=== PATIENT | female | born 1990 | race Caucasian/White ===

== ENCOUNTER 2019-10-08 07:45 | Inpatient (IN) | payer MEDICAID ==
[2019-11-05 09:37] LABS: APPEARANCE,URINE CLEAR; BILIRUBIN,URINE NEGATIVE (NEGATIVE); COLOR,URINE STRAW; GLUCOSE, URINE NEGATIVE (NEGATIVE); KETONES,URINE NEGATIVE (NEGATIVE); LEUKOCYTE ESTERASE,URINE NEGATIVE (NEGATIVE); NITRITE,URINE NEGATIVE (NEGATIVE); PROTEIN,URINE NEGATIVE (NEGATIVE); URINE SPECIFIC GRAVITY 1.005; UROBILINOGEN,URINE NEGATIVE mg/dL (<2.0)
[2019-11-05 09:53] LABS: URINE AMPHETAMINES SCREEN NEGATIVE; URINE BARBITURATES SCREEN NEGATIVE; URINE BENZODIAZEPINES SCREEN NEGATIVE; URINE COCAINE SCREEN NEGATIVE; URINE MARIJUANA (THC) SCREEN NEGATIVE; URINE METHADONE SCREEN NEGATIVE; URINE PHENCYCLIDINE SCREEN NEGATIVE
[2019-11-05 11:19] LABS: CHLAM PCR NOT DETECTED (NOT DETECT)
[2019-11-06 09:13] LABS: ABSOLUTE EOSINOPHILS # (AUTO) 0.1 10^3/uL (0.0-0.6); ABSOLUTE LYMPHOCYTES (AUTO) 1.7 10^3/uL (0.5-4.7); ABSOLUTE MONOCYTES (AUTO) 0.5 10^3/uL (0.1-1.4); ABSOLUTE NEUT (AUTO) 4.4 10^3/uL (1.7-8.2); BASOPHILS % (AUTO) 0.5 % (0-2); EOSINOPHILS % (AUTO) 1.1 % (0-6); HEMATOCRIT 35.9 % (36.0-47.0); HEMOGLOBIN 12.2 g/dL (12.0-15.5); LYMPHOCYTES % (AUTO) 25.1 % (13-45); MEAN CORPUSCULAR HEMOGLOBIN 29.8 pg (27.0-33.4); MEAN CORPUSCULAR HGB CONC 33.9 g/dL (32.0-36.0); MEAN CORPUSCULAR VOLUME 88 fl (80-97); MONOCYTES % (AUTO) 7.2 % (3-13); PLATELET COUNT 207 10^3/uL (150-450); RED BLOOD COUNT 4.09 10^6/uL (3.72-5.28); RED CELL DISTRIBUTION WIDTH 13.3 % (11.5-14.0); SEGMENTED NEUTROPHILS % (AUTO) 66.1 % (42-78); TOTAL CELLS COUNTED % (AUTO) 100 %; WHITE BLOOD COUNT 6.7 10^3/uL (4.0-10.5)
[2019-11-08] MEDS ORDERED: CEFAZOLIN 2 GM/D5W RTU 2 GM/50 ML RTUPB IV PRN (04:58)
[2019-11-08] MEDS ORDERED: RINGERS SOLUTION,LACTATED 1,000 ML IV ONE (05:15)
[2019-11-08] MEDS ORDERED: CEFAZOLIN INJ 1 GM VIAL ONE (06:13)
[2019-11-08] MEDS ORDERED: NALBUPHINE HCL INJ 10 MG/1 ML AMPULE ONE (06:40)
[2019-11-08] MEDS ORDERED: OXYTOCIN 10 UNIT/ML VIAL ONE (06:40)
[2019-11-08] MEDS ORDERED: EPHEDRINE SULFATE INJ 50 MG/1 ML AMPULE ONE (06:40)
[2019-11-08] MEDS ORDERED: FENTANYL CITRATE INJ/PF 100 MCG/2 ML AMPUL ONE (06:40)
[2019-11-08] MEDS ORDERED: MIDAZOLAM 2 MG/2 ML INJ ONE (06:40)
[2019-11-08] MEDS ORDERED: OXYTOCIN/NORMAL SALINE 20 UNIT/1,000 ML RTUINJ ONE (06:41)
[2019-11-08] MEDS ORDERED: ONDANSETRON HCL INJ/PF 4 MG/2 ML SDV ONE (06:41)
[2019-11-08] MEDS ORDERED: OXYCODONE-ACETAMINOPHEN 5-325 MG TABLET PO PRN ×2 (08:09→09:16)
[2019-11-08] MEDS ORDERED: PROMETHAZINE HCL INJ 25 MG/1 ML VIAL IV PRN ×3 (08:09→13:00)
[2019-11-08] MEDS ORDERED: DIPHENHYDRAMINE HCL 50 MG/ML VIAL IV PRN (08:09)
[2019-11-08] MEDS ORDERED: MORPHINE SULFATE 10 MG/ML INJ IV PRN (08:09)
[2019-11-08] MEDS ORDERED: FENTANYL CITRATE INJ/PF 100 MCG/2 ML AMPUL IV PRN ×3 (08:09)
[2019-11-08] MEDS ORDERED: ONDANSETRON HCL INJ/PF 4 MG/2 ML SDV IV PRN (08:09)
[2019-11-08] MEDS ORDERED: MEPERIDINE HCL/PF INJ 25 MG/1 ML DISP.SYRIN IV PRN (08:09)
[2019-11-08] MEDS ORDERED: MEASLES,MUMPS&RUBELLA VACC/PF 0.5 ML VIAL SUBCUT PRN ×2 (09:16→13:00)
[2019-11-08] MEDS ORDERED: HYDROMORPHONE HCL INJ/PF 2 MG/ML AMPULE IV PRN (09:16)
[2019-11-08] MEDS ORDERED: OXYTOCIN/NORMAL SALINE 20 UNIT/1,000 ML RTUINJ IV PRN (09:16)
[2019-11-08] MEDS ORDERED: SIMETHICONE 80 MG TAB.CHEW PO PRN ×2 (09:16→13:00)
[2019-11-08] MEDS ORDERED: DIPH/PERTUSS(ACELL)/TETANUS VAC/PF 0.5 ML SYR (>=10YO) IM PRN ×2 (09:16→13:00)
[2019-11-08] MEDS ORDERED: ACETAMINOPHEN 1,000 MG/100 ML RTUPB IV PRN (09:16)
[2019-11-08] MEDS ORDERED: RINGERS SOLUTION,LACTATED 1,000 ML IV PRN (09:16)
[2019-11-08] MEDS ORDERED: ACETAMINOPHEN 325 MG TABLET PO PRN (09:16)
[2019-11-08] MEDS ORDERED: KETOROLAC TROMETHAMINE INJ/PF 30 MG/1 ML SDV ONE (09:53)
[2019-11-08] MEDS ORDERED: ACETAMINOPHEN 1,000 MG/100 ML RTUPB IV ONE (09:54)
--- NOTE | 2019-11-08 09:57 | Operative Report ---
Operative Report DATE OF SURGERY: 11/08/19 PREOPERATIVE DIAGNOSIS: 39+0ega, history of section x 3, Undesired madi tility POSTOPERATIVE DIAGNOSIS: KAYLAH- Delivered OPERATION: Repeat section with scar revision and [facility] SURGEON: PETE CARPENTER ANESTHESIA: Spinal TISSUE REMOVED OR ALTERED: placenta and cord not sent to pathology, Portions of bilateral fallopian tubes COMPLICATIONS: None ESTIMATED BLOOD LOSS: 600ml QUANTITATIVE BLOOD LOSS: 545 INTRAOPERATIVE FINDINGS: significant scar tissue, bladder adered over lower uterine segment and difficult to perform bladder flap. VFI delivered at 0812 on 11/08/2019. Weight 7#, Apgars 9/9. Normal bilateral tubes/ovaries. PROCEDURE: Anesthesia provider: [Finn MORALES, Alfonzo Macias CRNA] Urine output: [200ml] IV fluids: [1200ml] Indications: [29yo at 39+0ega with history of 3 sections. She desires repeat section and risks, benefits, alternatives were reviewed. She is 100% sure that she has completed childbearing and desires tubal sterilization. complicated by A1GDM, varicella NI, and reports G2 has multiple medical problems.] Procedure: The patient was taken to the operating room where spinal anesthesia was obtained and found to be adequate. She was then prepped and draped in the normal sterile fashion and placed in the dorsal supine position with a leftward tilt. A Pfannenstiel skin incision was then made and carried through to the underlying layers of the fascia with the scalpel. The fascia was incised in the midline and the incision extended laterally with the Tyler scissors. The superior aspect of the fascial incision was then grasped with Ortiz clamps elevated and the underlying rectus muscles dissected off [bluntly]. Attention was then turned to the inferior aspect of the fascial incision which in a similar fashion was grasped, tented up with Ortiz clamps, and the rectus muscles dissected off [bluntly]. The rectus muscles were then in the midline and the peritoneum at the amount identified and entered [bluntly]. The peritoneal incision was then extended superiorly and inferiorly with good visualization of the bladder. The bladder blade was inserted and the vesicouterine peritoneum identified grasped with Latvian pickups and entered sharply with the Metzenbaum scissors. This incision was then extended laterally with the Metzenbaum scissors and a bladder flap created digitally. The bladder blade was then reinserted and the lower uterine segment incised in a transverse fashion with the scalpel. The uterine incision was then extended bluntly. The bladder blade was removed and the infant's head was delivered from cephalic presentation atraumatically. The nose and mouth were suctioned and the cord doubly clamped and cut. And the infant was handed off to waiting pediatricians. The placenta was then delivered spontaneously and the uterus exteriorized and cleared of all clots and debris. The uterine incision was then repaired with 1- 0 Vicryl in a running locked fashion. A second layer of the same suture was used to obtain hemostasis via imbrication of the initial layer. The bladder flap was then repaired with 3-0 chromic in a running fashion. The left fallopian tube was identified and parkland tubal occlusion performed with proximal and distal ties placed and intervening fallopian tube excised. THis procedure was repeated on the right fallopian tube. The uterus was returned to the patient's abdomen and Interceed was placed overlying the uterine incision to prevent adhesions. Surgicel was placed for hemostasis. The gutters were cleared of all clots and debris. All operative sites were noted to be hemostatic. The fascia was reapproximated with 0 Vicryl in a running fashion from each lateral edge to the midline. The skin was closed with 3-0 Monocryl in a running subcuticular fashion with overlying Dermabond for additional dressing as well as wound closure. The patient tolerated the procedure well. Sponge lap needle and instrument counts are correct times 2. 2 g of Ancef were given prior to skin incision. The patient was taken to the recovery area awake and in stable condition.
--- NOTE | 2019-11-08 09:59 | PDOC DELIVERY SUMMARY ---
Delivery Summary - Maternal Hx : V Hx Para: III Hx # Term Pregnancies: 3 Hx # Pregnancies: 0 Hx Total # of Abortions (Sponateous & Elective): 1 Number of Living Children: 3 MARJ: 11/13/19 Gestational Age: 39 +0 Risk Factors: Previous Ruptured Membranes: AROM Time of Rupture: 08:12 Fluids: Clear - Delivery Labor: Not In Labor Presentation: Vertex Heart Rate Monitoring: Done Pre-Operatively Uterine Contraction Monitoring: External Support Person Present: Yes - CORY Location: OR : Scheduled Placenta: Within Normal Limits Placenta Description: normal Number of Vessels (Cord): 3 Nuchal Cord: No Delivery of Placenta Date: 11/08/19 Delivery of Placenta Time: 08:14 Estimated Blood Loss: 600 Delivery Quantitative Blood Loss (QBL): 545 - Medications Type of Anesthesia:: Spinal - Assess and Care Baby 1 Female Delivery of Date: 11/08/19 Delivery of Infant Time: 08:12 at 1 minute: 9 at 5 minutes: 9 Preprinted Number On Band: [id number] Skin to Skin: No To Nursery At: 08:22 Mode of Transport: Bassinet Infant Delivery Weight: 31.7 Delivery Length: 19 in - Delivery Personnel RN: PATTI CH MD: PETE CARPENTER
[2019-11-08] MEDS: KETOROLAC TROMETHAMINE INJ/PF 30 MG/1 ML SDV IV SCH ×2 (10:01→17:26)
[2019-11-08] MEDS ORDERED: HYDROMORPHONE HCL INJ/PF 2 MG/ML AMPULE ONE (10:31)
[2019-11-08] MEDS: PRENATAL VITAMIN W DHA CAPSULE PO SCH (11:50)
[2019-11-08] MEDS: DOCUSATE SODIUM 100 MG CAPSULE PO SCH ×2 (11:51→17:26)
[2019-11-08] MEDS ORDERED: RINGERS SOLUTION,LACTATED 500 ML IV ONE (13:00)
[2019-11-08] MEDS: OXYCODONE-ACETAMINOPHEN 5-325 MG TABLET PO PRN (13:03)
[2019-11-08] MEDS: PIPERACILLIN SODIUM/TAZOBACTAM 3.375 GM in NORMAL SALINE 100 ML IV SCH (17:26)
[2019-11-08] MEDS ORDERED: PIPERACILLIN/TAZOBACTAM 3.375 GM VIAL IV SCH (18:00)
[2019-11-09] MEDS: PIPERACILLIN SODIUM/TAZOBACTAM 3.375 GM in NORMAL SALINE 100 ML IV SCH ×3 (00:03→11:31)
[2019-11-09] MEDS: OXYCODONE-ACETAMINOPHEN 5-325 MG TABLET PO PRN ×4 (00:03→18:43)
[2019-11-09] MEDS: KETOROLAC TROMETHAMINE INJ/PF 30 MG/1 ML SDV IV SCH (02:26)
[2019-11-09] MEDS ORDERED: LIDOCAINE 0.5% INJ-PF (5 MG/ML) 50 ML SDV SUBCUT PRN (05:00)
[2019-11-09] MEDS ORDERED: LACTATED RINGERS 1000 ML IV PRN (05:00)
[2019-11-09 06:54] LABS: HEMATOCRIT 31.7 % (36.0-47.0); HEMOGLOBIN 10.6 g/dL (12.0-15.5); MEAN CORPUSCULAR HEMOGLOBIN 29.5 pg (27.0-33.4); MEAN CORPUSCULAR HGB CONC 33.6 g/dL (32.0-36.0); MEAN CORPUSCULAR VOLUME 88 fl (80-97); PLATELET COUNT 185 10^3/uL (150-450); RED CELL DISTRIBUTION WIDTH 13.5 % (11.5-14.0); WHITE BLOOD COUNT 12.2 10^3/uL (4.0-10.5)
[2019-11-09] MEDS: IBUPROFEN 800 MG TABLET PO SCH ×3 (08:04→21:52)
[2019-11-09] MEDS: PRENATAL VITAMIN W DHA CAPSULE PO SCH (10:07)
[2019-11-09] MEDS: DOCUSATE SODIUM 100 MG CAPSULE PO SCH ×2 (10:07→18:43)
--- NOTE | 2019-11-09 11:08 | PDOC PROGRESS REPORT ---
Subjective-OB Progress Note for:: 11/09/19 Subjective: 29yo G5 now P4 s/p repeat and BTL ppd1. Pt. ambulating, voiding and passing gas without difficulty. Reports pain well controlled with medication. No concerns today. Physical Exam (OB) Vital Signs: Temp Pulse Resp BP Pulse Ox 98.4 F 71 16 103/55 L 100 11/09/19 07:45 11/09/19 07:45 11/09/19 07:45 11/09/19 07:45 11/09/19 07:45 Intake & Output 11/08/19 11/09/19 11/10/19 06:59 06:59 06:59 Intake Total 2290 600 Output Total 2550 Balance -260 600 Weight 88.904 kg - General General Appearance: Appears well In distress: None - PIH/Pre-Eclampsia Headache: Absent Epigastric Pain: No Visual Changes: No - Dressing Removed: Yes Incision: Open Closure Type: Surgical Glue - Bilateral Tubal Ligation Dressing Removed: Yes - Lochia Lochia Amount: Scant < 10 ml Lochia Color: Rubra/Red - Abdomen Description: Soft Hernia Present: No Fundal Description: Firm, Midline Fundal Height: u/u - u/2 - Respiratory Respiratory Status: No respiratory distress - Extremities Upper extremity: Normal inspection Lower extremities: Normal inspection - Neurological Cognition: Normal Orientation: AAOx4 - Psychological Associated symptoms: Normal affect, Normal mood Objective-Diagnostic Laboratory: 11/09/19 06:29 11/09/19 06:29 WBC 12.2 H RBC 3.60 L Hgb 10.6 L Hct 31.7 L MCV 88 MCH 29.5 MCHC 33.6 RDW 13.5 Plt Count 185 Assessment and Plan(PN) - Assessment and Plan (1) Acute blood loss anemia Is this a current diagnosis for this admission?: Yes Plan: increase dietary iron and FeSO4 BID (2) Gestational diabetes mellitus (GDM) Qualifiers: Gestational diabetes mellitus control: diet-controlled Trimester: unspecified trimester Qualified Code(s): O24.410 - Gestational diabetes mellitus in , diet controlled Is this a current diagnosis for this admission?: Yes Plan: delivered, fasting for visit (3) Admission for sterilization Is this a current diagnosis for this admission?: Yes Plan: BTL done by Dr. Parks (4) S/P repeat low transverse Is this a current diagnosis for this admission?: Yes Plan: Routine pp care - Time Spent with Patient Time with patient: Less than 15 minutes Medications reviewed and adjusted accordingly: Yes - Disposition Anticipated Discharge: Home Within: within 24 hours
[2019-11-09] MEDS ORDERED: CEPHALEXIN 500 MG CAPSULE PO ONE (12:34)
[2019-11-10] MEDS: OXYCODONE-ACETAMINOPHEN 5-325 MG TABLET PO PRN ×2 (01:28→13:47)
[2019-11-10] MEDS: IBUPROFEN 800 MG TABLET PO SCH ×2 (02:58→10:25)
--- NOTE | 2019-11-10 09:03 | PDOC PROGRESS REPORT ---
Subjective-OB Progress Note for:: 11/10/19 Subjective: Doing well, ready to go home,bottle feeding, wearing bra, voiding, passing gas Physical Exam (OB) Vital Signs: Temp Pulse Resp BP Pulse Ox 98.2 F 71 16 113/53 L 97 11/10/19 03:41 11/10/19 03:41 11/10/19 03:41 11/10/19 03:41 11/10/19 03:41 Intake & Output 11/09/19 11/10/19 11/11/19 06:59 06:59 06:59 Intake Total 2390 600 Output Total 2550 Balance -160 600 - PIH/Pre-Eclampsia Headache: Absent Epigastric Pain: No Visual Changes: No - Dressing Removed: Yes Incision: Open, Well Approximated Closure Type: Surgical Glue - Bilateral Tubal Ligation Dressing Removed: Yes - Lochia Lochia Amount: Scant < 10 ml Lochia Color: Rubra/Red - Abdomen Description: Tender, Soft Hernia Present: No Fundal Description: Firm, Midline Fundal Height: u/u - u/2 Objective-Diagnostic Laboratory: 11/09/19 06:29 Assessment and Plan(PN) - Assessment and Plan (1) Acute blood loss anemia Is this a current diagnosis for this admission?: Yes (2) Gestational diabetes mellitus (GDM) Qualifiers: Gestational diabetes mellitus control: diet-controlled Trimester: unspecified trimester Qualified Code(s): O24.410 - Gestational diabetes mellitus in , diet controlled Is this a current diagnosis for this admission?: Yes (3) Admission for sterilization Is this a current diagnosis for this admission?: Yes (4) S/P repeat low transverse Is this a current diagnosis for this admission?: Yes - Time Spent with Patient Time with patient: Less than 15 minutes Medications reviewed and adjusted accordingly: Yes - Disposition Anticipated Discharge: Home Within: within 24 hours - baby home with mom
--- NOTE | 2019-11-10 09:08 | PDOC DISCHARGE SUMMARY ---
Impression - Admit/DC Date/PCP Admission Date/Primary Care Provider: 11/08/19 04:51 PETE CARPENTER MD Discharge Date: 11/10/19 - Discharge Diagnosis (1) Acute blood loss anemia Is this a current diagnosis for this admission?: Yes (2) Gestational diabetes mellitus (GDM) Is this a current diagnosis for this admission?: Yes (3) Admission for sterilization Is this a current diagnosis for this admission?: Yes (4) S/P repeat low transverse Is this a current diagnosis for this admission?: Yes - Additional Information Resuscitation Status: Full Code Discharge Diet: As Tolerated, Regular Discharge Activity: Activity As Tolerated, No Lifting Over 10 Pounds, No Lifting/Push/Pulling, Pelvic Rest, No tub bath Referrals: PETE CARPENTER MD [Primary Care Provider] - ([facility] 1 week) Prescriptions: Oxycodone HCl/Acetaminophen [Percocet 5-325 mg Tablet] 1 tab PO Q4HP PRN #20 tablet PRN Reason: Ibuprofen [Motrin 800 mg Tablet] 800 mg PO Q6A #30 tablet Home Medications: Vit 90/Iron Fum/Folic [ Formula Tablet] 1 each PO DAILY 10/27/13 Ibuprofen [Motrin 800 mg Tablet] 800 mg PO Q6A #30 tablet 11/10/19 Oxycodone HCl/Acetaminophen [Percocet 5-325 mg Tablet] 1 tab PO Q4HP PRN #20 tablet 11/10/19 HPI Gestational Age: 39 Reason(s) for Admission: Ceasarean Section-Repeat, Tubal Ligation Procedures: NST, Ultrasound Intrapartum Procedure(s): : Low Cervical, Transverse Hospital Course Hospital Course: routine post op Results Laboratory Results: WBC 12.2 10^3/uL (4.0-10.5) H 11/09/19 06:29 RBC 3.60 10^6/uL (3.72-5.28) L 11/09/19 06:29 Hgb 10.6 g/dL (12.0-15.5) L 11/09/19 06:29 Hct 31.7 % (36.0-47.0) L 11/09/19 06:29 MCV 88 fl (80-97) 11/09/19 06:29 MCH 29.5 pg (27.0-33.4) 11/09/19 06:29 MCHC 33.6 g/dL (32.0-36.0) 11/09/19 06:29 RDW 13.5 % (11.5-14.0) 11/09/19 06:29 Plt Count 185 10^3/uL (150-450) 11/09/19 06:29 Lymph % (Auto) 25.1 % (13-45) 11/06/19 08:10 White % (Auto) 7.2 % (3-13) 11/06/19 08:10 Eos % (Auto) 1.1 % (0-6) 11/06/19 08:10 Baso % (Auto) 0.5 % (0-2) 11/06/19 08:10 Absolute Neuts (auto) 4.4 10^3/uL (1.7-8.2) 11/06/19 08:10 Absolute Lymphs (auto) 1.7 10^3/uL (0.5-4.7) 11/06/19 08:10 Absolute Monos (auto) 0.5 10^3/uL (0.1-1.4) 11/06/19 08:10 Absolute Eos (auto) 0.1 10^3/uL (0.0-0.6) 11/06/19 08:10 Absolute Basos (auto) 0.0 10^3/uL (0.0-0.2) 11/06/19 08:10 Seg Neutrophils % 66.1 % (42-78) 11/06/19 08:10 POC Glucose 89 mg/dL (70-110) 11/08/19 05:54 Urine Color STRAW 11/05/19 08:50 Urine Appearance CLEAR 11/05/19 08:50 Urine pH 7.0 (5.0-9.0) 11/05/19 08:50 Ur Specific [place] 1.005 11/05/19 08:50 Urine Protein NEGATIVE mg/dL (NEGATIVE) 11/05/19 08:50 Urine Glucose (UA) NEGATIVE mg/dL (NEGATIVE) 11/05/19 08:50 Urine Ketones NEGATIVE mg/dL (NEGATIVE) 11/05/19 08:50 Urine Blood NEGATIVE (NEGATIVE) 11/05/19 08:50 Urine Nitrite NEGATIVE (NEGATIVE) 11/05/19 08:50 Urine Bilirubin NEGATIVE (NEGATIVE) 11/05/19 08:50 Urine Urobilinogen NEGATIVE mg/dL (<2.0) 11/05/19 08:50 Ur Leukocyte Esterase NEGATIVE (NEGATIVE) 11/05/19 08:50 Urine WBC (Auto) 1 /HPF 11/05/19 08:50 Urine RBC (Auto) 0 /HPF 11/05/19 08:50 Urine Bacteria (Auto) TRACE /HPF 11/05/19 08:50 Squamous Epi Cells Auto 4 /HPF 11/05/19 08:50 Urine Mucus (Auto) RARE /LPF 11/05/19 08:50 Urine Ascorbic Acid NEGATIVE (NEGATIVE) 11/05/19 08:50 Urine Opiates Screen NEGATIVE 11/05/19 08:50 Urine Methadone Screen NEGATIVE 11/05/19 08:50 Ur Barbiturates Screen NEGATIVE 11/05/19 08:50 Ur Phencyclidine Scrn NEGATIVE 11/05/19 08:50 Ur Amphetamines Screen NEGATIVE 11/05/19 08:50 U Benzodiazepines Scrn NEGATIVE 11/05/19 08:50 Urine Cocaine Screen NEGATIVE 11/05/19 08:50 U Marijuana (THC) Screen NEGATIVE 11/05/19 08:50 Chlamydia DNA (PCR) NOT DETECTED (NOT DETECT) 11/05/19 08:20 N.gonorrhoeae DNA (PCR) NOT DETECTED (NOT DETECT) 11/05/19 08:20 Blood Type A POSITIVE 11/06/19 08:10 Antibody Screen NEGATIVE 11/06/19 08:10 Plan Health Concerns: routine Plan of Treatment: home, rtc 1 week, rx for pain, rev S&S to report Goals: no complications Time Spent: Less than 30 Minutes
[2019-11-10] MEDS: PRENATAL VITAMIN W DHA CAPSULE PO SCH (10:26)
[2019-11-10] MEDS: DOCUSATE SODIUM 100 MG CAPSULE PO SCH (10:26)
[2019-11-10 12:01] VITALS: BP 114/67
== END 2019-11-10 14:45 | disposition home or self-care (01) | DRG 784 ==
LOC: 2S 11-08 04:51
PROVIDERS: ADMIT Student in an Organized Health Care Education/Training Program; ATTEND Student in an Organized Health Care Education/Training Program
PROC: 10D00Z1 Extraction of Products of Conception, Low, Open Approach (ICD-10-PCS; principal; 2019-11-09)
PROC: 0UL70ZZ Occlusion of Bilateral Fallopian Tubes, Open Approach (ICD-10-PCS; 2019-11-09)
DX: O34.211 Maternal care for low transverse scar from previous cesarean delivery (principal); D62 Acute posthemorrhagic anemia; O24.420 Gestational diabetes mellitus in childbirth, diet controlled; O90.81 Anemia of the puerperium; N85.8 Other specified noninflammatory disorders of uterus; Z3A.39 39 weeks gestation of pregnancy; Z37.0 Single live birth; Z30.2 Encounter for sterilization
CPT/HCPCS: 1961; 36415; 59025; 80307; 81001; 82962; 85025; 85027; 86850; 86900; 86901; 87491; 87591; 88302; 94799; C1765; J0131; J1170; J1885; J2250; J2300; J2405; J2543; J2590; J3010; J3490; J7050; J7120

== ENCOUNTER 2019-11-03 11:06 | Outpatient (CLI) | payer MEDICAID ==
[2019-11-03 11:49] LABS: APPEARANCE,URINE CLOUDY; BILIRUBIN,URINE NEGATIVE (NEGATIVE); COLOR,URINE YELLOW; GLUCOSE, URINE NEGATIVE (NEGATIVE); KETONES,URINE NEGATIVE (NEGATIVE); LEUKOCYTE ESTERASE,URINE NEGATIVE (NEGATIVE); NITRITE,URINE NEGATIVE (NEGATIVE); PROTEIN,URINE NEGATIVE (NEGATIVE); URINE SPECIFIC GRAVITY 1.013
[2019-11-03] MEDS ORDERED: RINGERS SOLUTION,LACTATED 1,000 ML IV PRN (12:00)
[2019-11-03 12:05] LABS: URINE AMPHETAMINES SCREEN NEGATIVE; URINE BARBITURATES SCREEN NEGATIVE; URINE BENZODIAZEPINES SCREEN NEGATIVE; URINE COCAINE SCREEN NEGATIVE; URINE MARIJUANA (THC) SCREEN NEGATIVE; URINE METHADONE SCREEN NEGATIVE; URINE PHENCYCLIDINE SCREEN NEGATIVE
--- NOTE | 2019-11-03 14:01 | RADIOLOGY REPORT (SQ) ---
EXAM DESCRIPTION: U/S OB LIMITED COMPLETED DATE/TIME: 11/03/2019 1:48 pm REASON FOR STUDY: FREYA previous low FREYA COMPARISON: None. TECHNIQUE: Limited transabdominal grayscale ultrasound for evaluation of specific requested obstetri roney parameters. LIMITATIONS: None. FINDINGS: EGA: 38 week 2 day. MARJ: 11/15/2019. EFW: 3442 g. PERCENTILE: 60%. CERVICAL LENGTH: 3.5 cm. Closed. FREYA: 7.0 cm. FHR: 150 beats per minute. PRESENTATION: Cephalic. PLACENTA: Posterior ANATOMY: Not assessed OTHER: No other significant findings. IMPRESSION: LIMITED OBSTETRICAL ULTRASOUND WITH MEASURED PARAMETERS DELINEATED ABOVE. Trimester of : Third trimester - 28 weeks to delivery. TECHNICAL DOCUMENTATION: JOB ID: [id number] All Rights Reserved Reading location - IP/workstation name: [email or web address]
== END 2019-11-03 14:25 | disposition home or self-care (01) ==
LOC: LC 11:06
PROVIDERS: ATTEND Obstetrics & Gynecology
PROC: 4A1HXCZ Monitoring of Products of Conception, Cardiac Rate, External Approach (ICD-10-PCS; principal; 2019-11-03)
DX: Z36.89 Encounter for other specified antenatal screening (principal); Z3A.38 38 weeks gestation of pregnancy
CPT/HCPCS: 59025; 76815; 80307; 81005